=== PATIENT | female | born 1970 | race Caucasian/White ===

== ENCOUNTER → 2022-05-12 | Day surgery (SDC) | payer OTHER ==
[~2022-05-12] MED LIST: BUPROPION XL150 MG PO; FAMOTIDINE20 MG PO; LISINOPRIL-HCT1 EACH PO; PROTONIX 40 MG40 M1 PO; XYZAL5 MG PO
== END | disposition home or self-care (01) ==
LOC: OR 07:14
DX: Z12.11 Encounter for screening for malignant neoplasm of colon (principal); D12.3 Benign neoplasm of transverse colon; K64.1 Second degree hemorrhoids; K21.00 Gastro-esophageal reflux disease with esophagitis, without bleeding; K31.7 Polyp of stomach and duodenum; K44.9 Diaphragmatic hernia without obstruction or gangrene; E66.9 Obesity, unspecified; I10 Essential (primary) hypertension; Z68.30 Body mass index [BMI] 30.0-30.9, adult; Z79.899 Other long term (current) drug therapy
CPT/HCPCS: J2704; J7040